=== PATIENT | female | born 1935 | race Caucasian/White ===

== ENCOUNTER 2016-05-02 08:01 | Inpatient (IN) | payer BC, MEDICARE ==
[~2016-05-02] VITALS: Ht 153.7 cm; Wt 48.6 kg
[~2016-05-02 08:01] MED LIST: ASPI81TA2 PO; CARV12.52 PO; Losartan Potassium PO; SIMV20TA6 PO
[2016-05-02] MEDS ORDERED: IV NS 0.9% 500 ML BAG IV ONE (08:30)
[2016-05-02 08:36] LABS: BASOPHILS % (AUTO) 0.6 % (0.0-2.0); DIFF TOTAL % 100 %; EOSINOPHILS # (AUTO) 0.1 /CMM (0.0-0.7); HEMATOCRIT 34 % (33-45); HEMOGLOBIN 11.2 g/dL (11.5-14.8); LYMPHOCYTES # (AUTO) 1.8 /CMM (0.8-4.8); MEAN CORPUSCULAR HEMOGLOBIN 28 PG (26.0-33.0); MEAN CORPUSCULAR HGB CONC 33 g/dl (31.0-36.0); MEAN CORPUSCULAR VOLUME 85 fL (82-100); MONOCYTES # (AUTO) 0.2 /CMM (0.1-1.30); MONOCYTES % (AUTO) 4.7 % (2.0-12.0); NEUTROPHILS # (AUTO) 2.8 /CMM (1.8-8.9); NEUTROPHILS % (AUTO) 55.7 % (43.0-81.0); PLATELET COUNT (AUTO) 183 /CMM (150-450); RED BLOOD CELL COUNT(AUTO) 4.02 MIL/uL (4.0-5.2)
[2016-05-02 08:46] LABS: ANION GAP 10 (5-14); CALCIUM, SERUM 8.7 mg/dL (8.5-10.1); CARBON DIOXIDE 25 mmol/L (21-32); CHLORIDE 110 mmol/L (98-107); CREATININE 1.3 mg/dL (0.6-1.3); GLUCOSE 239 mg/dL (74-106); POTASSIUM 4.6 mmol/L (3.5-5.1); SODIUM SERUM 141 mmol/L (136-145); UREA NITROGEN, BLOOD 18 mg/dL (7-18)
[2016-05-02] MEDS ORDERED: IV NS 0.9% 500 ML IV ONE (08:46)
[2016-05-02] MEDS ORDERED: IV SET PRIMARY 1 EA INFUS.SET MC ONE (08:46)
[2016-05-02 08:53] LABS: ALANINE AMINOTRANSFERASE 12 U/L (12-78); ALBUMIN 3.3 g/dL (3.4-5.0); ASPARTATE AMINOTRANSFERASE 9 U/L (15-37); BILIRUBIN,DIRECT 0.1 mg/dL (0.0-0.2); BILIRUBIN,TOTAL 0.3 mg/dL (0.2-1.0); INDIRECT BILIRUBIN 0.2 mg/dL (0.0-1.1); INR 1.03 (0.87-1.13); PROTHROMBIN TIME 11.1 SECS (9.5-12.7); TOTAL PROTEIN, SERUM 6.2 g/dL (6.4-8.2)
[2016-05-02 08:54] LABS: TROPONIN I < 0.017 ng/mL (0.00-0.056)
[2016-05-02 08:57] LABS: LACTIC ACID 1.4 mmol/L (0.4-2.0)
[2016-05-02] MEDS ORDERED: GABA-534 PO (09:39)
[2016-05-02] MEDS ORDERED: GLIM2TAB2 PO (09:39)
[2016-05-02] MEDS ORDERED: LISI10TA5 PO (09:39)
[2016-05-02] MEDS ORDERED: CLOP75TA2 PO (09:39)
[2016-05-02] MEDS ORDERED: FURO-144 PO (09:39)
[2016-05-02] MEDS ORDERED: ACETAMINOPHEN 325 MG TABLET PO PRN (10:00)
[2016-05-02] MEDS ORDERED: MAG HYDROX/AL HYDROX/SIMETH 30 ML UDC PO PRN (10:00)
[2016-05-02] MEDS ORDERED: ZOLPIDEM TARTRATE 5 MG TABLET PO PRN (10:00)
[2016-05-02] MEDS ORDERED: Z GUARD REMEDY 2 OZ OINT TP PRN (10:00)
[2016-05-02] MEDS ORDERED: ONDANSETRON HCL/PF 4 MG/2 ML VIAL IVP PRN (10:00)
[2016-05-02] MEDS ORDERED: MAGNESIUM HYDROXIDE 30 ML UDC PO PRN (10:00)
[2016-05-02 10:07] LABS: KETONES,URINE Trace (NEGATIVE); LEUKOCYTE ESTERASE ,URINE Small (NEGATIVE); PH,URINE 5.5 (5.0-8.0)
[2016-05-02 10:14] LABS: ADD UA MICROSCOPIC YES
[2016-05-02 10:15] LABS: ADD URINE CULTURE YES
[2016-05-02 12:00] VITALS: BP 126/59
[2016-05-02] MEDS ORDERED: IV SET PRIMARY PUMP SET 1 EA INFUS.SET MC ONE (14:59)
[2016-05-02] MEDS ORDERED: SECONDARY IV SET 1 EA INFUS.SET MC ONE (14:59)
[2016-05-02] MEDS: IV NS 0.9% 1,000 ML IV PRN (15:05)
[2016-05-02 16:00] VITALS: BP 145/73
[2016-05-02] MEDS ORDERED: FUROSEMIDE 40 MG TABLET PO PRN (16:00)
[2016-05-02] MEDS ORDERED: LEVOFLOXACIN 500 MG /D5W 100ML 500 MG in PREMIX 1 EA IV SCH (16:00)
[2016-05-02] MEDS ORDERED: LOPERAMIDE HCL (2 MG CAP) 2 MG CAPSULE PO PRN (16:00)
[2016-05-02] MEDS ORDERED: DEXTROSE 50%-WATER 50 ML DISP.SYRIN IV PRN (16:00)
[2016-05-02] MEDS ORDERED: LEVOFLOXACIN 500 MG /D5W 100ML 500 MG in PREMIX 1 EA IV ONE (17:00)
[2016-05-02] MEDS ORDERED: FLU VACC QS 2016-17(36MOS+)/PF 0.5 ML DISP.SYRIN IM ONE (17:00)
[2016-05-02] MEDS ORDERED: GABAPENTIN 300 MG CAPSULE PO SCH (17:00)
[2016-05-02] MEDS: INSULIN REGULAR, HUMAN 100 UNIT/ML 3 ML VIAL SQ PRN (17:06)
[2016-05-02] MEDS: GLIMEPIRIDE 1 MG TABLET PO SCH (17:17)
[2016-05-02] MEDS: BLOOD SUGAR DIAGNOSTIC 1 EACH STRIP IN SCH ×2 (18:15→22:23)
[2016-05-02] MEDS: LISINOPRIL (10MG) 10 MG TABLET PO SCH (18:19)
[2016-05-02 20:00] VITALS: BP 165/70
[2016-05-02 20:18] VITALS: BP 165/75
[2016-05-02 23:52] VITALS: BP 158/87
[2016-05-03 04:27] VITALS: BP 147/66
[2016-05-03] MEDS: IV NS 0.9% 1,000 ML IV PRN (06:26)
[2016-05-03] MEDS: INSULIN REGULAR, HUMAN 100 UNIT/ML 3 ML VIAL SQ PRN ×2 (06:35→11:57)
[2016-05-03] MEDS: BLOOD SUGAR DIAGNOSTIC 1 EACH STRIP IN SCH ×2 (06:56→11:57)
[2016-05-03 07:28] LABS: BASOPHILS % (AUTO) 0.3 % (0.0-2.0); DIFF TOTAL % 100 %; EOSINOPHILS % (AUTO) 0.7 % (0.0-6.0); HEMATOCRIT 33 % (33-45); LYMPHOCYTES # (AUTO) 1.1 /CMM (0.8-4.8); MEAN CORPUSCULAR HEMOGLOBIN 28 PG (26.0-33.0); MEAN CORPUSCULAR HGB CONC 33 g/dl (31.0-36.0); MEAN CORPUSCULAR VOLUME 85 fL (82-100); MONOCYTES # (AUTO) 0.2 /CMM (0.1-1.30); MONOCYTES % (AUTO) 3.6 % (2.0-12.0); NEUTROPHILS # (AUTO) 4.7 /CMM (1.8-8.9); NEUTROPHILS % (AUTO) 77.4 % (43.0-81.0); PLATELET COUNT (AUTO) 164 /CMM (150-450); RED BLOOD CELL COUNT(AUTO) 3.94 MIL/uL (4.0-5.2); WHITE BLOOD COUNT (AUTO) 6.1 K/uL (4.3-11.0)
[2016-05-03] MEDS ORDERED: PANTOPRAZOLE 40 MG TABLET.DR PO SCH (07:30)
[2016-05-03 07:32] LABS: CREATININE 1.2 mg/dL (0.6-1.3); PHOSPHORUS 2.7 mg/dL (2.5-4.9); POTASSIUM 3.8 mmol/L (3.5-5.1)
[2016-05-03 07:48] LABS: TROPONIN I 0.024 ng/mL (0.00-0.056)
[2016-05-03 08:00] VITALS: BP_SYST 134; BP_SYST 64; BP_DIAS 64
[2016-05-03] MEDS: GLIMEPIRIDE 1 MG TABLET PO SCH (08:23)
[2016-05-03] MEDS: LISINOPRIL (10MG) 10 MG TABLET PO SCH (08:24)
[2016-05-03] MEDS ORDERED: ATORVASTATIN 10 MG TABLET PO SCH (09:00)
[2016-05-03] MEDS ORDERED: GABAPENTIN 300 MG CAPSULE PO SCH (09:00)
[2016-05-03] MEDS ORDERED: CLOPIDOGREL BISULFATE 75 MG TABLET PO SCH (09:00)
[2016-05-03] MEDS ORDERED: SECONDARY IV SET 1 EA INFUS.SET MC ONE (10:17)
[2016-05-03] MEDS: Magnesium 1GM/D5W 100ML PREMIX 100 ML IV SCH ×2 (10:23→11:20)
[2016-05-03 12:37] VITALS: BP_SYST 106; BP_SYST 119; BP_SYST 125; BP_DIAS 45; BP_DIAS 55; BP_DIAS 56
[2016-05-03] MEDS ORDERED: ATOR10TA PO (13:52)
[2016-05-03] MEDS ORDERED: LEVOFLOXACIN 250 MG /D5W 50 ML 250 MG in PREMIX 1 EA IV SCH (17:00)
== END 2016-05-03 15:50 | disposition home or self-care (01) | DRG 312 ==
LOC: ER 08:03 → TELE 11:42 → MED 05-03 07:04
PROVIDERS: ADMIT Internal Medicine; ATTEND Internal Medicine
DX: R55 Syncope and collapse (principal); I50.33 Acute on chronic diastolic (congestive) heart failure; I69.354 Hemiplegia and hemiparesis following cerebral infarction affecting left non-dominant side; E44.1 Mild protein-calorie malnutrition; I42.9 Cardiomyopathy, unspecified; I25.10 Atherosclerotic heart disease of native coronary artery without angina pectoris; E78.5 Hyperlipidemia, unspecified; E11.9 Type 2 diabetes mellitus without complications; Z95.1 Presence of aortocoronary bypass graft; D63.8 Anemia in other chronic diseases classified elsewhere; R74.8 Abnormal levels of other serum enzymes; K52.9 Noninfective gastroenteritis and colitis, unspecified; Z90.49 Acquired absence of other specified parts of digestive tract; Z95.2 Presence of prosthetic heart valve; I11.0 Hypertensive heart disease with heart failure
CPT/HCPCS: 36415; 70450-TC; 71010-TC; 80048-TC; 80061-TC; 80076-TC; 81000-TC; 82728-TC; 82962-TC; 83540-TC; 83605-TC; 83735-TC; 84100-TC; 84484-TC; 85025-TC; 85730-TC; 87040-TC; 87081-TC; 87086-TC; 87186-TC; 93307-TC; 93880-TC; A4216; A4606; J1815; J1956; J3475; J7030; J7040; Q2036; Z7610

== ENCOUNTER 2018-08-11 09:41 | Emergency (ER) | payer BC, OTHER ==
[~2018-08-11] VITALS: Ht 152.4 cm; Wt 53.5 kg
[~2018-08-11 09:41] MED LIST changes: -ASPI81TA2 PO; +ATOR10TA PO; -CARV12.52 PO; +CLOP75TA15 PO; +FURO-144 PO; +GABA-534 PO; +GLIM2TAB2 PO; +LISI10TA5 PO; -Losartan Potassium PO; -SIMV20TA6 PO
[2018-08-11 10:27] LABS: BASOPHILS % (AUTO) 0.4 % (0.0-2.0); EOSINOPHILS % (AUTO) 1.3 % (0.0-6.0); HEMATOCRIT 35 % (33-45); HEMOGLOBIN 11.8 g/dL (11.5-14.8); LYMPHOCYTES # (AUTO) 1.1 /CMM (0.8-4.8); LYMPHOCYTES % (AUTO) 18.9 % (20.0-44.0); MEAN CORPUSCULAR HGB CONC 34 g/dl (31.0-36.0); MEAN CORPUSCULAR VOLUME 85 fL (82-100); MONOCYTES # (AUTO) 0.3 /CMM (0.1-1.30); NEUTROPHILS # (AUTO) 4.2 /CMM (1.8-8.9); NEUTROPHILS % (AUTO) 73.4 % (43.0-81.0); PLATELET COUNT (AUTO) 177 /CMM (150-450); RED BLOOD CELL COUNT(AUTO) 4.07 MIL/uL (4.0-5.2); WHITE BLOOD COUNT (AUTO) 5.7 K/uL (4.3-11.0)
[2018-08-11 10:36] LABS: CALCIUM, SERUM 9.4 mg/dL (8.5-10.1); CARBON DIOXIDE 26 mmol/L (21-32); CHLORIDE 105 mmol/L (98-107); CREATININE 1.3 mg/dL (0.6-1.3); GLUCOSE 193 mg/dL (74-106); POTASSIUM 4.2 mmol/L (3.5-5.1); SODIUM SERUM 142 mmol/L (136-145); UREA NITROGEN, BLOOD 21 mg/dL (7-18)
[2018-08-11 10:43] LABS: ALANINE AMINOTRANSFERASE 19 U/L (12-78); ALBUMIN 3.9 g/dL (3.4-5.0); ALCOHOL, BLOOD < 3 mg/dL (0-0); ALKALINE PHOSPHATASE 146 U/L (46-116); ASPARTATE AMINOTRANSFERASE 21 U/L (15-37); BILIRUBIN,DIRECT 0.1 mg/dL (0.0-0.2); BILIRUBIN,TOTAL 0.4 mg/dL (0.2-1.0); TOTAL PROTEIN, SERUM 7.5 g/dL (6.4-8.2)
[2018-08-11 10:46] LABS: SALICYLATE 1.6 mg/dL (2.8-20.0)
[2018-08-11 10:47] LABS: ACETAMINOPHEN < 2 ug/ml (10-30)
--- NOTE | 2018-08-11 10:55 | NUR ---
called [facility]
--- NOTE | 2018-08-11 11:09 | NUR ---
PT REC'D TO ER VIA EMS DAUGHTER CALLED IN FOR MOTHER JUANCHO EVAIL CONFUSED . ORIENTED X2 . CALLED AWAITING EVALUATION BY ER PROVIDER. PT AMB WITH ASSISTANCE TO BR VOIDED UA SENT TO LAB
[2018-08-11 11:19] LABS: APPEARANCE,URINE Clear (CLEAR); BILIRUBIN,URINE Negative (NEGATIVE); BLOOD, URINE Trace-lysed Ery/uL (NEGATIVE); COLOR,URINE Yellow (YELLOW); KETONES,URINE Negative (NEGATIVE); LEUKOCYTE ESTERASE ,URINE Negative (NEGATIVE); NITRITE, URINE Negative (NEGATIVE); PROTEIN,URINE 100 mg/dl (NEGATIVE); UGLUCOSE Negative (NEGATIVE); UROBILINOGEN,URINE 0.2 EU/dL (0.2)
[2018-08-11 11:35] LABS: BACTERIA,URINE Rare /HPF (None Seen); SQUAMOUS EPITHELIAL CELL,UR Few /HPF (None Seen); WBC,URINE NONE SEEN /HPF (0-3)
--- NOTE | 2018-08-11 12:10 | NUR ---
CALLED [facility] FOR CALL BACK
[2018-08-11] MEDS ORDERED: ASPI-1152 PO (12:20)
[2018-08-11] MEDS ORDERED: CARV3.122 PO (12:20)
[2018-08-11] MEDS ORDERED: CYAN500T2 PO (12:20)
[2018-08-11] MEDS ORDERED: ROSU40TA PO (12:20)
[2018-08-11] MEDS ORDERED: QUET25TA PO (12:20)
[2018-08-11] MEDS ORDERED: SPIR25TA6 PO (12:20)
[2018-08-11] MEDS ORDERED: RANO500T3 PO (12:20)
[2018-08-11] MEDS ORDERED: CALC-7 PO (12:20)
[2018-08-11] MEDS ORDERED: AMLO2.5T4 PO (12:20)
--- NOTE | 2018-08-11 13:06 | NUR ---
PT WILL ADMIT TO GPS
--- NOTE | 2018-08-11 14:00 | NUR ---
DAUGHTER AT BEDSIDE PT QUIET CALM EATING LUNCH . DAUGHTER LEFT
[2018-08-11 14:20] VITALS: BP 126/79
--- NOTE | 2018-08-11 14:28 | NUR ---
CALL FOR UPDATE ONCE HOLD IS WRITTEN
--- NOTE | 2018-08-11 15:44 | NUR ---
[facility] WILL CALL BACK WITH BED ASSIGNMENT UPDATE
--- NOTE | 2018-08-11 16:42 | NUR ---
[facility] [phone] [facility] ETA [phone]
== END 2018-08-11 17:54 ==
LOC: ER 09:49
DX: F22 Delusional disorders (principal); F29 Unspecified psychosis not due to a substance or known physiological condition; F03.90 Unspecified dementia, unspecified severity, without behavioral disturbance, psychotic disturbance, mood disturbance, and anxiety; I10 Essential (primary) hypertension; Z86.73 Personal history of transient ischemic attack (TIA), and cerebral infarction without residual deficits; Z95.1 Presence of aortocoronary bypass graft; E11.9 Type 2 diabetes mellitus without complications; Z88.6 Allergy status to analgesic agent; Z88.0 Allergy status to penicillin; Z88.5 Allergy status to narcotic agent; Z79.82 Long term (current) use of aspirin
CPT/HCPCS: 36415; 80048; 80076; 80305; 80307; 80329; 81001; 85025; 99285; G0480; 81000-TC